=== PATIENT | female | born 1995 | race Caucasian/White ===

== ENCOUNTER 2024-02-19 02:38 | Emergency (ER) | payer BC ==
[2024-02-19 03:00] LABS: BILIRUBIN,URINE NEGATIVE (NEGATIVE); COLOR,URINE YELLOW; GLUCOSE,URINE NEGATIVE (NEGATIVE); KETONES,URINE NEGATIVE (NEGATIVE); LEUKOCYTE ESTERASE,URINE TRACE (NEGATIVE); NITRITE,URINE NEGATIVE (NEGATIVE); OCCULT BLOOD,URINE TRACE-INTACT (NEGATIVE); PROTEIN,URINE NEGATIVE (NEGATIVE); UROBILINOGEN,URINE >=8.0 EU/dL (<2.0)
[2024-02-19 03:01] LABS: APPEARANCE,URINE HAZY
[2024-02-19 03:11] LABS: EPITHELIAL CELLS,URINE FEW (NONE-FEW); RBC,URINE 0-5 (0-2/HPF)
[2024-02-19 03:12] LABS: BACTERIA,URINE FEW (NEGATIVE)
[2024-02-19] MEDS: Nitrofurantoin Monohydrate/Macrocrystalline 100 MG Cap PO ONE (03:17)
== END 2024-02-19 03:21 | disposition home or self-care (01) ==
LOC: MW.ED 02:38
DX: N39.0 Urinary tract infection, site not specified (principal); F17.210 Nicotine dependence, cigarettes, uncomplicated; Z75.8 Other problems related to medical facilities and other health care
CPT/HCPCS: 81001; 81025; 87086; 99284; A9270

== ENCOUNTER 2024-12-23 09:04 | Emergency (ER) | payer SELFPAY | END 2024-12-23 10:54 | disposition home or self-care (01) | LOC: MW.ED 09:04 | DX: S92.901A Unspecified fracture of right foot, initial encounter for closed fracture (principal); S93.491A Sprain of other ligament of right ankle, initial encounter; Z79.899 Other long term (current) drug therapy; X50.1XXA Overexertion from prolonged static or awkward postures, initial encounter | CPT/HCPCS: 29515; 73610; 73630; 99283; A9270 ==